=== PATIENT | female | born 1950 | race Caucasian/White ===

== ENCOUNTER 2024-02-22 10:14 | Emergency (ER) | payer OTHER, SELFPAY ==
[2024-02-22] VITALS (7 sets, daily range): BP systolic 84–125; BP diastolic 53–68; BMI 32.6
--- NOTE | 2024-02-22 10:25 | ED.GENMED ---
History of Present Illness
General
Chief Complaint: Fainting/Passed Out
Source: patient and ambulance crew
Exam Limitations: none
Time Seen by Provider: 02/22/24 10:15
Nursing documentation reviewed up to this point in time: agreed with
Travel History
Have you had any contact with someone who has COVID-19?: No
Do you have any symptoms of coronavirus? Fever > 100 degrees, chills, cough, shortness of breath, sore throat, loss of taste or smell, muscle aches, or headache?: No
History of Present Illness
History of Present Illness:
73-year-old female with no reported past medical history who presents to the emergency room for evaluation after syncopal event. 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
and lightheaded. She says that she felt as if she might pass out. She says she sat down in the chair and she says bystanders told her that she passed out for a second. EMS was called and patient was transported to the emergency room. Patient
says that she did not have any chest pain, palpitations, dyspnea preceding her syncopal event and does not have any symptoms in the emergency room aside from some minor fatigue. She says she has been in her normal state of health has not been ill
with a fever, cough, URI symptoms. She has not had any recent vomiting or diarrhea. She denies any headache. Denies any abdominal or flank pain. She denies any fall or trauma associated with her syncope. She says she did skip breakfast only had
a cookie with some milk this morning. Per EMS Accu-Chek was normal.
Review of Systems
Review of Systems
All Other Systems: ROS reviewed and negative except as documented in HPI and ROS
Constitutional: Reports fatigue; Denies fever or chills
EENT: Denies sore throat or runny nose
Respiratory: Denies cough or trouble breathing
Cardiac: Reports syncope; Denies chest pain or palpitations
ABD/GI: Denies abdominal pain, nausea, vomiting or diarrhea
: Denies flank pain
Musculoskeletal: Denies neck pain or back pain
Neurological: Denies headache, weakness or numbness
Phy Exam
Physical Exam
Physical Exam:
General: Awake, alert, oriented x3; no acute distress
Head: Normocephalic, atraumatic
Eyes: Conjunctiva normal, EOMI, pupils equal round and reactive to light bilaterally
Throat: Airway intact, handling secretions
Neck: Trachea midline, supple without meningismus
Lungs: Clear to auscultation bilaterally, no wheezing, rales, rhonchi
Heart: Regular rate and rhythm, no murmurs, gallops, or rubs
Abd: Soft, non distended, nontender with no palpable masses
Neuro: Cranial nerves grossly intact, speech fluid
Skin: no rash
Extremities: No edema in extremities, equal pulses in all extremities
Scores
Heart Failure Risk
Heart Failure Risk Score: Not Applicable
Heart Score for Chest Pain Patients
STEMI patient?: Not applicable
Withdrawal Assessment of Alcohol
Withdrawal Assessment Completed?: Not applicable
Course
Orders/Labs/Results
Orders:
Orders
02/22/24
Electrocardiogram (*1) Stat
Comment: ALREADY DONE
02/22/24 10:23
Urinalysis Reflex To Culture Urgent
02/22/24 10:24
CR Chest - 2 Views Urgent
Comment:
Reason For Exam: syncope
02/22/24 10:26
0.9% Sodium Chloride 1000 ml [Nss] 1,000 ml IV BOLUS
02/22/24 10:29
COVID-19 Antigen Urgent
Source: Nasal Swab
Complete Blood Count/With Diff Urgent
Comprehensive Metabolic Panel Urgent
Influenza A+B Rapid Molecular Urgent
SANTIAGO Source: Nasal Swab
Specimen Description:
Abnormal Lab Results
02/22/24
10:29
RBC 3.87 L 10^6/uL
(4.20-5.40)
Hgb 11.6 L g/dL
(12.0-16.0)
Hct 34.4 L %
(37.0-47.0)
Absolute Lymphs (auto) 4.3 H 10^3/uL
(1.2-3.4)
BUN 29 H mg/dl
(7-17)
Creatinine 1.2 H mg/dL
(0.6-1.0)
Glucose 116 H mg/dl
(70-99)
Total Protein 6.2 L g/dl
(6.3-8.2)
02/22/24 10:29
02/22/24 10:29
Vital Signs
Blood pressure: 128/68
Initial and Last Documented VS:
Initial Vital Signs
Temp
36.4 C
02/22/24 10:15
Last Documented Vital Signs
Temp Pulse Resp BP Pulse Ox
36.4 C 59 11 104/54 99
02/22/24 10:15 02/22/24 10:45 02/22/24 10:45 02/22/24 10:45 02/22/24 10:18
MDM/Problems Addressed
Differential Diagnosis Includes:
Dehydration, hypoglycemia, anemia, orthostatic hypotension/postural syncope, vasovagal syncope, cardiac dysrhythmia; nothing by history or exam to suggest subarachnoid hemorrhage, massive pulmonary embolism, ruptured AAA in my judgment no further
workup indicated for these diagnoses at this point
MDM/Problems Addressed:
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 She has some mild fatigue but otherwise asymptomatic here. Vital signs and exam as documented. EKG shows sinus rhythm with no AV
block, no ectopy, no signs of Brugada, no delta wave, normal QTc. Plan to place an IV check labs including CBC and CMP. Check chest x-ray. Will monitor on telemetry. Provide some fluids. Reassess after the above.
Labs reviewed: CBC shows marginal anemia unlikely to account for syncope. Creatinine 1.2 with elevated BUN likely prerenal azotemia�patient admits that she had a dental extraction yesterday has not been eating or drinking very much since. Chest
x-ray no acute disease. Her blood pressure normalized with IV fluids and she is feeling much better she is up and ambulatory does not feel dizzy or lightheaded at all. Of admission the patient says she feels well this comfortable discharge. She
says she will drink more fluids and try and eat when she goes home. We spoke about return precautions all questions answered.
*Pulse Oximetry
Patient hypoxic: no
*EKG
Interpreted by ED Provider?: Yes
Heart Rate: 54
Rate: bradycardiac
Rhythm: sinus
[place]: normal axis
Interval: normal interval
QRS Pattern: normal QRS
Ischemia: no ischemia
*Critical Care Note
Total Time (30-74mins, 75-104mins- exclusive of procedures): Not Applicable
Data Reviewed
Source: patient and ambulance crew
ED Attending Note
-
Portions of this chart may have been created with voice recognition software.� Occasional wrong word or��sound alike� substitutions may have occurred due to the inherent limitations of voice recognition software.
Discharge Plan
Departure
Patient Disposition: Home (Routine Discharge)
Date of Disposition: 02/22/24
Time of Disposition: 12:18
Patient with high blood pressure during this ER visit?: No
Discharge Problem:
Syncope, OLIVIA (acute kidney injury), Dehydration
Instructions: Syncope (Fainting) (DC)
Referrals:
Purvi Jiang NP [Family Provider] - Call in 1-3 days for appt
Activity Restrictions/Additional Instructions:
Thank you for visiting the Emergency Department at [facility].
1. Please schedule a follow up appointment as directed. Call first thing tomorrow morning to make an appointment.
2. If indicated, please take your medications as instructed and indicated on discharge paperwork.
3. If any of your symptoms do not improve, or persist, or become more severe within 6-12 hours, please return to the emergency department for further care.
4. Please return to the emergency department if you develop a headache, neck pain/stiffness, fever greater than 100.4F, chest pain, shortness of breath, persistent nausea, vomiting, slurred speech, difficulty walking, numbness/tingling, weakness,
signs of infection or any other symptoms that are worrisome to you.
Please call [phone] if you have any questions.
Interventions
Interventions:
*Risk Screen - Suicide Last Done: 02/22/24 10:17
*General Assessment Last Done: 02/22/24 10:17
*Neglect/Abuse Screening Last Done: 02/22/24 10:17
ED- Cardiac Assessment Last Done: 02/22/24 10:45
ED- Neurological Assessment Last Done: 02/22/24 10:45
Discharge Date and Time
Print Language: MALAY
[2024-02-22] MEDS: NSS 1000 IV (10:32)
[2024-02-22 10:45] LABS: % Basophils 0.4 % (0-2); % Eosinophils 0.7 % (0-6); % Immature Granulocytes 0.3 % (0-0.5); % Lymphocytes 45.1 % (20.5-51.1); % Monocytes 6.5 % (1.7-9.3); Absolute Eosinophils 0.1 10^3/uL (0-0.7); Absolute Lymphocytes 4.3 10^3/uL (1.2-3.4); Absolute Monocytes 0.6 10^3/uL (0.1-0.6); Absolute Neutrophils 4.5 10^3/uL (1.4-6.5); Hematocrit 34.4 % (37.0-47.0); Hemoglobin 11.6 g/dL (12.0-16.0); Mean Corp Hgb Conc. 33.7 g/dL (33.0-37.0); Mean Corpuscular Volume 88.9 fL (81.0-99.0); Mean Platelet Volume 9.7 fL (7.4-10.4); Nucleated Red Blood Cells % 0 %; Platelet Count 250 10^3/uL (130-400); Red Blood Cell Count 3.87 10^6/uL (4.20-5.40); Red Cell Dist. Width 13.2 % (11.5-14.5); White Blood Cell Count 9.6 10^3/uL (4.8-10.8)
[2024-02-22 10:57] LABS: ALT (SGPT) 16 U/L (0-35); AST (SGOT) 22 U/L (14-36); Albumin 3.8 g/dl (3.5-5.0); Alkaline Phosphatase 64 U/L (38-126); Blood Urea Nitrogen 29 mg/dl (7-17); Calcium 9.2 mg/dl (8.4-10.2); Carbon Dioxide 23 mmol/L (22-30); Chloride 107 mmol/L (98-107); Estimated Creatinine Clearance 48 ml/min; Glucose 116 mg/dl (70-99); Potassium 4.2 mmol/L (3.5-5.1); Sodium 135 mmol/L (135-145); Total Protein 6.2 g/dl (6.3-8.2); eGFR 48.09
[2024-02-22 11:06] LABS: COVID-19 Antigen Negative (Negative)
[2024-02-22 12:57] LABS: Urine Albumin Negative (Neg - Trace); Urine Bilirubin 3+ (Negative); Urine Character Clear (Clear); Urine Color Yellow; Urine Glucose Negative (Negative); Urine Ketone Trace (Negative); Urine Leukocyte 1+ (Negative); Urine Nitrite Negative (Negative); Urine Occult Blood Negative (Negative); Urine Specific Gravity 1.015 (<1.030); Urine Urobilinogen Negative (Neg - 1+)
[2024-02-22 13:17] LABS: Urine Mucus Many; Urine Squamous Cell >30 /LPF (Few)
[2024-02-22 13:19] LABS: Urine Amorphous Seen
[2024-02-22 13:20] LABS: Urine Red Blood Cell 0-2 /HPF (0-2)
[2024-02-22 13:21] LABS: Urine Bacteria Many (Negative)
== END 2024-02-22 12:29 | disposition home or self-care (01) ==
LOC: EMR 10:14
PROVIDERS: EMERGENCY PHYSICIAN Emergency Medicine; FAMILY PHYSICIAN Nurse Practitioner Adult Health
DX: R55 Syncope and collapse (principal); N17.9 Acute kidney failure, unspecified; E86.0 Dehydration; Z11.52 Encounter for screening for COVID-19
CPT/HCPCS: 99285; 71046; 80053; 81003; 81015; 85025; 87086; 87502; 87811; 93005; 99284